=== PATIENT | male | born 1970 | race Caucasian/White ===

== ENCOUNTER → 2020-06-04 | Outpatient (CLI) | payer OTHER ==
--- NOTE | 2020-06-04 12:27 | KCIC ---
STUDY: MRI of the left knee without contrast INDICATION: Left knee pain. COMPARISON: None. TECHNIQUE: Multiplanar MR imaging of the left knee performed without the use of intravenous or intra-articular contrast. FINDINGS: Menisci: Complex, multidirectional tear of the medial meniscus beginning at the mid body segment and extending into the posterior horn. A radial tear is seen on image 22 series 4 and image 21 series 8. Combination horizontal and vertical/oblique tearing from the posterior body into the posterior horn, images 19 through 21 series 7. A tiny focus of meniscal tissue is flipped downward towards the meniscotibial recess on image 11 series 9. Intact lateral meniscus. Cruciate ligaments: Intact. Collateral ligaments: Intact. Tendons: No tear or significant tendinosis. Cartilage: Patellofemoral: Medial patellar facet chondral fissure, image 13 series 4. High-grade chondrosis at the mid to lower trochlear groove to include a full-thickness fissure with mild subchondral marrow edema. Lateral compartment: No high-grade chondral loss at the weightbearing aspect. Chondrosis at the far posterior nonweightbearing lateral femoral condyle with faint subchondral edema/cystic change such as seen on images 14 and 16 series 4. Medial compartment: Mild superficial chondrosis at the weightbearing aspect of the joint. Bones: No acute fracture or focally aggressive marrow signal abnormality. Normal TT-TG distance. Miscellaneous: No significant joint effusion. Tiny Stewart's cyst. IMPRESSION: 1. Complex/multidirectional tear of the medial meniscus from the mid body segment into the posterior horn, as detailed in the body the report. There is a tiny associated focus of meniscal tissue flipped downward towards the meniscotibial recess (image 11 series 9). Intact lateral meniscus, cruciate ligaments and collateral ligaments. 2. Scattered superficial chondrosis however there is a higher grade region of chondral loss at the mid to lower trochlear groove with mild subchondral edema (image 11 series 7). Electronically signed by: SPARKLE BRENNER MD (06/04/2020 12:22 PM) [id number]
== END ==
LOC: KCIC MRI 08:09
PROVIDERS: ATTEND Physician Assistant
DX: S83.242A Other tear of medial meniscus, current injury, left knee, initial encounter (principal); M25.462 Effusion, left knee; X58.XXXA Exposure to other specified factors, initial encounter; Y93.89 Activity, other specified; Y92.89 Other specified places as the place of occurrence of the external cause; Y99.8 Other external cause status
CPT/HCPCS: 73721

== ENCOUNTER → 2020-07-30 | Outpatient (CLI) | payer OTHER ==
--- NOTE | 2020-07-30 11:07 | RAD ---
Examination: US GDE NDL BX/ASPIR/INJ/LOC History: Reason: LT THYROID NODULE / Spl. Instructions: / History: Comparison/Correlation: None Findings: Risks, benefits, and alternatives regarding left thyroid nodule fine needle aspiration by u ltrasound guidance were discussed with the patient and informed consent was obtained. Cleansing with ChloraPrep at the anticipated site of needle placement was performed. Sterile draping, sterile gel, a nd sterile probe cover is were utilized. 9 cc of 1 percent lidocaine was administered subcutaneously and along the expected course of the needle tracks. A total of 4 passes were made with 4 separate 25-gauge needles and they're attached syringes. The labor/excavator present stated that the samples were adequate. Impression: Successful left thyroid nodule fine-needle aspiration with no acute complications. Electronically signed by: Chapin Mann MD (07/30/2020 11:05 AM) [id number]
--- NOTE | 2020-07-31 15:20 | PATHOLOGY ---
Note [facility] Accession Number: [id number] TESTS RESULT FLAG UNITS REF RANGE LAB Clinician Provided Cytology Information No. of containers..01 Other (Miscellaneous) Source: LT THYROID NODULE DIAGNOSIS: LT THYROID NODULE NEGATIVE FOR MALIGNANT CELLS. B[place]ESDA CATEGORY II. SPECIMEN CONSISTS OF BENIGN FOLLICULAR CELLS, HEMOSIDERIN-LADEN MACROPHAGES, COLLOID, AND BLOOD. THIS PATTERN IS CONSISTENT WITH A BENIGN FOLLICULAR NODULE. COLLOID IS PRESENT. RED BLOOD CELLS ARE PRESENT. THIS INTERPRETATION INCLUDES EVALUATION OF A CELL BLOCK. Pathologist ICD10: 02 E04.1 Signed out by: 02 Jeyson Hernandez MD, Pathologist NPI- [id number] Performed by: Lupe Castellanos, [employer] ([facility]) Gross description: 01 30ML, CLEAR RED, 2F 2AD 2HE /LCS 07/30/2020 1350 Local FLAG LEGEND: L-Low Normal,H-High Normal,LL-Alert Low,HH-Alert High <-Panic Low,>-Panic High,A-Abnormal,AA-Critical Abnormal Performed at: [facility] [address] [place] [address] Jan Robles MD, 02 [facility] [address] [id number] Jeyson Hernandez MD, Specimen Comment: [id number] Specimen Comment: Report sent to Performed at: 01 [facility] [address], [place], [place] [id number] MD Jan Robles MD Phone: [phone]
== END | disposition home or self-care (01) ==
LOC: US 08:11
PROVIDERS: ATTEND Surgery
DX: E04.1 Nontoxic single thyroid nodule (principal); D34 Benign neoplasm of thyroid gland
CPT/HCPCS: 10005; 76942; 88173; 88305